=== PATIENT | female | born 1940 | race Caucasian/White ===

== ENCOUNTER → 2016-08-29 | Outpatient (CLI) | payer MEDICARE | LOC: RAD 16:17 | PROVIDERS: ATTEND Specialist | DX: C50.212 Malignant neoplasm of upper-inner quadrant of left female breast (principal) | CPT/HCPCS: 78815; A9552 ==

== ENCOUNTER → 2016-09-07 | Outpatient (CLI) | payer MEDICARE ==
--- NOTE | 2016-09-07 19:54 | XCELERA REPORT ---
[address] [address] Transthoracic Echocardiogram Report Name: ANTHONY UMANA Age: 76 yrs Gender: Female : 1940 Patient Status: Outpatient Patient Location: Study Date: 09/07/2016 09:45 AM Height: 61 in Weight: 156 lb BSA: 1.7 m2 Reason For Study: PERICARDIAL CYST I31.8 Ordering Physician: TODD LANDA Performed By: Justus Damon Interpretation Summary min. posteriior pericardial effusion.No pericardial cyst seen. Mild NSCAVD with no AR. Mild mitral annular calcification, no MS, mild MR with no MVP, and mod LA enlargement. No LVH, normal LVEF 58% with stage I LV diastolic dysfunction, apical IVS appears hypokinetic. no LV enlargement. TR mild ,mild pulm hypertension RVSP 37. no R heart enlargement. MMode/2D Measurements \T\ Calculations RVDd: 3.0 cm LVIDd: 5.3 cm FS: 31.4 % Ao root diam: 2.8 cm IVSd: 0.97 cm LVIDs: 3.6 cm EDV(Teich): 134.5 ml LVPWd: 0.98 cm ESV(Teich): 55.4 ml Ao root area: 6.2 cm2 EF(Teich): 58.8 % LA dimension: 4.7 cm Doppler Measurements \T\ Calculations MV E max paola: MV P1/2t max paola: Ao V2 max: LV V1 max P.6 cm/sec 80.0 cm/sec 102.9 cm/sec 1.8 mmHg MV A max paola: MV P1/2t: 71.0 msec Ao max PG: LV V1 max: 100.7 cm/sec 4.2 mmHg 68.0 cm/sec MV E/A: 0.72 MVA(P1/2t): 3.1 cm2 MV dec slope: 329.8 cm/sec2 MV dec time: 0.24 sec PA V2 max: PI end-d paola: TR max paola: RAP systole: 66.6 cm/sec 62.8 cm/sec 258.0 cm/sec 10.0 mmHg PA max P.8 mmHg TR max P.6 mmHg RVSP(TR): 36.6 mmHg Left Ventricle The left ventricle is normal in size. There is normal left ventricular wall thickness. LV EF is 58%. Doppler measurements suggest impaired left ventricular relaxation, which is associated with grade I/IV or mild diastolic dysfunction. There is distal septal wall mild hypokinesis. There is no thrombus. Right Ventricle The right ventricle is normal size. The right ventricular systolic function is normal. Atria The right atrium is normal in size. The left atrium is moderately dilated. The interatrial septum is intact with no evidence for an atrial septal defect. Mitral Valve There is mild mitral annular calcification. The mitral valve is grossly normal. There is no evidence of mitral valve prolapse. There is no mitral valve stenosis. There is a mild amount of mitral regurgitation. Aortic Valve The aortic valve is trileaflet. The aortic valve opens well. There is no aortic valvular vegetation. There is no aortic valve stenosis. No aortic regurgitation is present. Tricuspid Valve The tricuspid valve is not well visualized secondary to technical limitations. There is no tricuspid stenosis. There is a trace or physiologic amount of tricuspid regurgitation. Right ventricular systolic pressure is estimated to be elevated at 30-40mmHg. Pulmonic Valve The pulmonic valve is not well visualized. There is a trace or physiologic amount of pulmonic regurgitation. Great Vessels The aortic root is normal size. Effusions Minimal pericardial effusion. I WMSI = 1.06 % Normal = 94 Segments Size X - Cannot 1 - Normal 2 - 3 - Akinetic4 - 1-2 small Interpret Hypokinetic Dyskinetic 3-5 moderate 5 - 6-14 large Aneurysmal 15-16 diffuse : TODD LANDA > Domingo Tavares
== END ==
LOC: SP 09:26
PROVIDERS: ATTEND Specialist
DX: I31.8 Other specified diseases of pericardium (principal)
CPT/HCPCS: 93306

== ENCOUNTER 2016-09-27 10:55 | Day surgery (SDC) | payer MEDICARE ==
[~2016-09-27 10:55] MED LIST: PROPOFOL INJ 200 MG/20 ML VIAL IV ONE
--- NOTE | 2016-09-27 13:00 | Operative Report ---
Operative Report DATE OF SURGERY: 09/27/16 Operative Report: The risks benefits and alternatives of the procedure explained to the patient in detail and informed consent is obtained that GIF Olympus video scope was inserted into the patient's mouth and hypopharynx the esophagus is identified intubated and insufflated the scope was then advanced through the esophagus stomach and duodenum retroflexion maneuver is done the esophagus stomach and first and second portions of the duodenum examined PREOPERATIVE DIAGNOSIS: Gastric discomfort dyspepsia. CT scan suggestive of esophageal cyst, question bronchogenic cysts. POSTOPERATIVE DIAGNOSIS: Gastritis biopsies obtained rule out Helicobacter pylori. Duodenitis. Cystic lesion not within the lumen of the esophagus OPERATION: EGD with biopsy SURGEON: GORAN TONY ANESTHESIA: LMAC TISSUE REMOVED OR ALTERED: Gastric specimen obtained rule out Helicobacter pylori COMPLICATIONS: None. ESTIMATED BLOOD LOSS: none. INTRAOPERATIVE FINDINGS: Normal esophagus. As described above. First and second portions of the duodenum normal PROCEDURE: Patient tolerated the procedure well. No immediate postprocedure complications are noted. Patient is discharged in good condition. Discharge date 09/27/2016. Discharge diet: Regular. Discharge activity: Regular. 2-3 week follow-up to discuss findings. We'll await on biopsies. Patient is instructed to call the office or proceed to the emergency room should there be any further problems or questions.
[2016-09-27 13:35] VITALS: BP 144/70
== END 2016-09-27 13:30 | disposition home or self-care (01) ==
LOC: END 10:55
PROVIDERS: ATTEND Internal Medicine Gastroenterology
PROC: 0DB68ZX Excision of Stomach, Via Natural or Artificial Opening Endoscopic, Diagnostic (ICD-10-PCS; principal; 2016-09-27 14:30)
DX: K29.50 Unspecified chronic gastritis without bleeding (principal); K22.9 Disease of esophagus, unspecified; K29.80 Duodenitis without bleeding; E78.00 Pure hypercholesterolemia, unspecified; I10 Essential (primary) hypertension; Z79.82 Long term (current) use of aspirin; Z79.899 Other long term (current) drug therapy; Z88.1 Allergy status to other antibiotic agents
CPT/HCPCS: 43239; 88305 ×2; J2704; 740

== ENCOUNTER 2017-01-28 21:37 | Emergency (ER) | payer MEDICARE ==
[2017-01-28] MEDS ORDERED: ACETAMINOPHEN 325 MG TABLET ONE (21:49)
[2017-01-28] MEDS ORDERED: MORPHINE SULFATE 10 MG/ML INJ IM ONE (22:18)
--- NOTE | 2017-01-28 22:31 | ER Document Report ---
ED Fall - General Information source: Patient TRAVEL OUTSIDE OF THE [place] IN LAST 30 DAYS: No - HPI Patient complains to provider of: left shoulder pain Where: Home - General Chief Complaint: Shoulder Injury Stated Complaint: FALL/HEAD INJURY Time Seen by Provider: 01/28/17 22:24 Notes: Patient is a 76 year old female who presents to the ED with complaints of left shoulder pain secondary to a fall. Patient was being assisted down some stairs without a hand rail and fell approximately 3 stairs with the person helping her landing on top of her. Patient states she landed on her left side of face and head. Patient denies any LOC. Patient denies neck pain. No other concerns or complaints at this time. Patient has a history of osteoporosis, hypertension, hyperlipidemia, breast cancer and depression. (LAYLA RAMIREZ) - Related data Allergies/Adverse Reactions: No Known Allergies Allergy (Verified 09/27/16 11:14) Past Medical History - General Information source: Patient - Social History Smoking Status: Never Smoker Frequency of alcohol use: None Drug Abuse: None Family History: Reviewed & Not Pertinent Patient has suicidal ideation: No Patient has homicidal ideation: No - Past Medical History Cardiac Medical History: Reports: Hx Hypertension Denies: Hx Coronary Artery Disease, Hx Heart Attack Pulmonary Medical History: Denies: Hx Asthma, Hx Bronchitis, Hx COPD, Hx Pneumonia Neurological Medical History: Denies: Hx Cerebrovascular Accident, Hx Seizures Renal/ Medical History: Denies: Hx Peritoneal Dialysis Malignancy Medical History: Reports: Hx Breast Cancer Musculoskeltal Medical History: Denies Hx Arthritis Psychiatric Medical History: Reports: Hx Depression - Immunizations Hx Diphtheria, Pertussis, Tetanus Vaccination: Yes Hx Pneumococcal Vaccination: 07/11/15 Review of Systems - Review of Systems Constitutional: No symptoms reported EENT: No symptoms reported Cardiovascular: No symptoms reported Respiratory: No symptoms reported Gastrointestinal: No symptoms reported Genitourinary: No symptoms reported Female Genitourinary: No symptoms reported Musculoskeletal: See HPI, Other - left shoulder pain. denies: Neck pain Skin: No symptoms reported Hematologic/Lymphatic: No symptoms reported Neurological/Psychological: No symptoms reported Physical Exam - General General appearance: Appears well, Alert - HEENT Head: Normocephalic, Atraumatic, Other - no bruising, swelling or tenderness to left side of face Eyes: Normal Extraocular movements intact: Yes Pupils: PERRL Neck: Normal, Other - non tender - Respiratory Respiratory status: No respiratory distress Chest status: Nontender Breath sounds: Normal Chest palpation: Normal - Cardiovascular Rhythm: Regular Heart sounds: Normal auscultation Murmur: No - Abdominal Inspection: Normal Distension: No distension - Back Back: Normal - Extremities General upper extremity: Other - left shoulder tender to palpation and swollen, currently in shoulder immobilizer sling General lower extremity: Normal inspection Shoulder: Tender, Other - left shoulder tender to palpation and swollen, currently in shoulder immobilizer sling - Neurological Neuro grossly intact: Yes Cognition: Normal Orientation: AAOx4 [place] Coma Scale Eye Opening: Spontaneous [place] Coma Scale Verbal: Oriented Itzel Coma Scale Motor: Obeys Commands [place] Coma Scale Total: 15 Speech: Normal - Psychological Associated symptoms: Normal affect, Normal mood - Skin Skin Temperature: Warm Skin Moisture: Dry Skin Color: Normal Course - Re-evaluation Re-evalutation: 01/28/17 23:31 When I first saw the patient, she had a shoulder immobilizer/sling on and it seems to fit well. (NIKKY ALEGRE) - Vital Signs Vital signs: Temp Pulse Resp BP Pulse Ox 98.4 F 60 18 150/74 H 96 01/28/17 21:44 01/28/17 21:44 01/28/17 21:44 01/28/17 21:44 01/28/17 21:44 Discharge - Discharge Clinical Impression: Fracture of humeral head, left, closed Qualifiers: Encounter type: initial encounter Qualified Code(s): S42.292A - Other displaced fracture of upper end of left humerus, initial encounter for closed fracture Condition: Stable Disposition: HOME, SELF-CARE Additional Instructions: Fracture Proximal Humerus There is a fracture at the upper end of the humerus, near the shoulder joint. Your physician has assessed the fracture's severity and has determined that it will heal well without surgery or "setting." The typical shoulder fracture doesn't need a cast. It's best treated by binding the arm down with a special sling. Ice packs are used to reduce pain and swelling. After early healing has occurred, rejho-jp-hopiwl exercises are prescribed for the shoulder. Complete healing may take three to six weeks, depending on the age of the patient and the severity of the fracture. Call the doctor or return at once if the arm becomes numb, or if pain or swelling become severe. You have an impacted fracture of the left humeral head and neck. The treatment for this is the sling/immobilizer, ice packs today, and pain medication. Call the [facility] for surgery on Tuesday to schedule an appointment this week with the orthopedic surgeons. RETURN TO THE EMERGENCY ROOM IF ANY NEW OR WORSENING SYMPTOMS. Prescriptions: Oxycodone HCl/Acetaminophen [Percocet 5-325 mg Tablet] 1 - 2 tab PO ASDIR PRN # 20 tablet PRN Reason: Referrals: [facility] [Provider Group] - Follow up in 3-5 days Scribe Attestation: 01/28/17 23:31 I personally performed the services described in the documentation, reviewed and edited the documentation which was dictated to the scribe in my presence, and it accurately records my words and actions. (NIKKY ALEGRE) Scribe Documentation - Scribe Written by Jitendra:: jitendra Roblero, 01/28/2017 acting as scribe for :: Rosalio
--- NOTE | 2017-01-28 22:47 | RADIOLOGY REPORT (SQ) ---
EXAM DESCRIPTION: HUMERUS LEFT COMPLETED DATE/TIME: 01/28/2017 10:13 pm REASON FOR STUDY: fall COMPARISON: None. NUMBER OF VIEWS: Two views. TECHNIQUE: Two radiographic images were acquired of the left humerus to include elbow and shoulder i n at least one projection. LIMITATIONS: None. FINDINGS: MINERALIZATION: Normal. BONES: Impacted fracture of the humeral head and neck. No other acute fracture or dislocation. No w orrisome bone lesions. SOFT TISSUES: No obvious swelling or foreign body. OTHER: No other significant finding. IMPRESSION: IMPACTED FRACTURE OF THE HUMERAL HEAD AND NECK. TECHNICAL DOCUMENTATION: JOB ID: [id number] [employer]- All Rights Reserved
--- NOTE | 2017-01-28 22:48 | RADIOLOGY REPORT (SQ) ---
EXAM DESCRIPTION: SHOULDER LEFT 2 OR MORE VIEWS COMPLETED DATE/TIME: 01/28/2017 10:13 pm REASON FOR STUDY: fall COMPARISON: None. NUMBER OF VIEWS: Two views. TECHNIQUE: Frontal and lateral images acquired of the left shoulder. LIMITATIONS: Limited positioning. FINDINGS: MINERALIZATION: Normal. BONES: Impacted fracture of the humeral head and neck. JOINTS: No dislocation. VISUALIZED LUNGS AND RIBS: No pneumothorax. No rib fracture. SOFT TISSUES: No radiopaque foreign body. OTHER: No other significant finding. IMPRESSION: LIMITED STUDY. IMPACTED FRACTURE OF THE HUMERAL HEAD AND NECK. TECHNICAL DOCUMENTATION: JOB ID: [id number] [employer]- All Rights Reserved
--- NOTE | 2017-01-28 23:11 | RADIOLOGY REPORT (SQ) ---
EXAM DESCRIPTION: CT HEAD WITHOUT COMPLETED DATE/TIME: 01/28/2017 11:00 pm REASON FOR STUDY: fall, hit head COMPARISON: None. TECHNIQUE: Axial images acquired through the brain without intravenous contrast. Images reviewed wi th bone, brain and subdural windows. Images stored on PACS. All CT scanners at this facility use dose modulation, iterative reconstruction, and/or weight based d osing when appropriate to reduce radiation dose to as low as reasonably achievable (ALARA). [facility]: Dose Right [facility]: CareDose [facility]: Dose Right [facility]: Teradose 4D [facility]: Smart SuperSonic Imagine RADIATION DOSE: Up-to-date CT equipment and radiation dose reduction techniques were employed. CTDIv ol: 64.6 mGy. DLP: 1034 mGy-cm. mGy. LIMITATIONS: None. FINDINGS: VENTRICLES: Prominent. CEREBRUM: No masses. No hemorrhage. No midline shift. Areas of low density in the white matter mos t likely due to chronic micro-vascular ischemic change. No evidence for acute infarction. CEREBELLUM: No masses. No hemorrhage. No alteration of density. No evidence for acute infarction. EXTRAAXIAL SPACES: Mild age-related involutional change. No fluid collections. No masses. ORBITS AND GLOBE: No intra- or extraconal masses. Normal contour of globe without masses. CALVARIUM: No fracture. PARANASAL SINUSES: No fluid or mucosal thickening. SOFT TISSUES: No mass or hematoma. OTHER: No other significant finding. IMPRESSION: MILD CHRONIC CHANGES OF ATROPHY AND MICROVASCULAR ISCHEMIA. NO ACUTE PROCESS. TECHNICAL DOCUMENTATION: JOB ID: [id number] Quality ID # [id number]: Final reports with documentation of one or more dose reduction techniques (e.g., Au tomated exposure control, adjustment of the mA and/or kV according to patient size, use of iterative reconstruction technique) 2010 [employer]- All Rights Reserved
[2017-01-28] MEDS ORDERED: OXYCODONE-ACETAMINOPHEN 5-325 MG TABLET PO ONE (23:32)
[2017-01-28] MEDS ORDERED: HYDROCODONE/ACETAMINOPHEN 5-325 MG 6 TAB/DSPK PO PRN (23:44)
[2017-01-29 00:01] VITALS: BP 167/78
== END 2017-01-28 23:45 | disposition home or self-care (01) ==
LOC: ER 21:37
DX: S42.292A Other displaced fracture of upper end of left humerus, initial encounter for closed fracture (principal); S09.90XA Unspecified injury of head, initial encounter; W10.9XXA Fall (on) (from) unspecified stairs and steps, initial encounter; M81.0 Age-related osteoporosis without current pathological fracture; I10 Essential (primary) hypertension; E78.5 Hyperlipidemia, unspecified; Z85.3 Personal history of malignant neoplasm of breast
CPT/HCPCS: 99284; 96372; 73060; 73030; 70450; J2270; A9270 ×2

== ENCOUNTER 2017-02-09 05:14 | Day surgery (SDC) | payer MEDICARE ==
[2017-02-07 10:10] LABS: ABSOLUTE EOSINOPHILS # (AUTO) 0.2 10^3/uL (0.0-0.6); ABSOLUTE LYMPHOCYTES (AUTO) 0.4 10^3/uL (0.5-4.7); ABSOLUTE MONOCYTES (AUTO) 0.5 10^3/uL (0.1-1.4); ABSOLUTE NEUT (AUTO) 5.9 10^3/uL (1.7-8.2); BASOPHILS % (AUTO) 0.3 % (0-2); EOSINOPHILS % (AUTO) 2.9 % (0-6); HEMATOCRIT 39.6 % (36.0-47.0); HEMOGLOBIN 13.9 g/dL (12.0-15.5); HGB HCT DIFFERENCE 2.1; LYMPHOCYTES % (AUTO) 5.7 % (13-45); MEAN CORPUSCULAR HEMOGLOBIN 31.3 pg (27.0-33.4); MEAN CORPUSCULAR VOLUME 90 fl (80-97); MONOCYTES % (AUTO) 7.4 % (3-13); RED BLOOD COUNT 4.42 10^6/uL (3.72-5.28); RED CELL DISTRIBUTION WIDTH 13.4 % (11.5-14.0); SEGMENTED NEUTROPHILS % (AUTO) 83.7 % (42-78)
[2017-02-07 10:15] LABS: APPEARANCE,URINE CLEAR; BILIRUBIN,URINE NEGATIVE (NEGATIVE); GLUCOSE, URINE NEGATIVE (NEGATIVE); KETONES,URINE NEGATIVE (NEGATIVE); LEUKOCYTE ESTERASE,URINE SMALL (NEGATIVE); NITRITE,URINE NEGATIVE (NEGATIVE); PROTEIN,URINE NEGATIVE (NEGATIVE); URINE SPECIFIC GRAVITY 1.004; UROBILINOGEN,URINE NEGATIVE mg/dL (<2.0)
--- NOTE | 2017-02-07 11:09 | RADIOLOGY REPORT (SQ) ---
EXAM DESCRIPTION: CHEST PA/LATERAL COMPLETED DATE/TIME: 02/07/2017 10:50 am REASON FOR STUDY: PRE OP COMPARISON: None. EXAM PARAMETERS: NUMBER OF VIEWS: two views TECHNIQUE: Digital Frontal and Lateral radiographic views of the chest acquired. RADIATION DOSE: NA LIMITATIONS: none FINDINGS: LUNGS AND PLEURA: The lungs are mildly hyperexpanded. Mild chronic interstitial changes a re suggested. There is no infiltrate or effusion. No mass is seen. MEDIASTINUM AND HILAR STRUCTURES: No masses or contour abnormalities. HEART AND VASCULAR STRUCTURES: Heart normal size. No evidence for failure. BONES: No acute findings. HARDWARE: None in the chest. OTHER: No other significant finding. IMPRESSION: Chronic lung changes no acute cardiopulmonary disease. TECHNICAL DOCUMENTATION: JOB ID: [id number] [employer]- All Rights Reserved
--- NOTE | 2017-02-07 13:35 | EKG REPORT ---
SEVERITY:- ABNORMAL ECG - SINUS RHYTHM PROBABLE LEFT VENTRICULAR HYPERTROPHY : Confirmed by: Domingo Tavares MD 07-Feb-2017 13:34:48
[~2017-02-09 05:14] MED LIST changes: +LACTATED RINGERS 1000 ML IV PRN; +LIDOCAINE 0.5% INJ-PF (5 MG/ML) 50 ML SDV SUBCUT PRN; -PROPOFOL INJ 200 MG/20 ML VIAL IV ONE
[2017-02-09] MEDS ORDERED: BUPIVACAINE HCL 0.5%-EPI 1:200000 INJ/PF 30 ML VIAL ONE (05:50)
[2017-02-09 06:34] LABS: ANION GAP 10 (5-19); BLOOD UREA NITROGEN 7 mg/dL (7-20); CALCIUM 9.7 mg/dL (8.4-10.2); CARBON DIOXIDE 26 mmol/L (22-30); CHLORIDE 95 mmol/L (98-107); GLUCOSE 102 mg/dL (75-110); POTASSIUM 4.4 mmol/L (3.6-5.0); SODIUM 131.4 mmol/L (137-145)
[2017-02-09] MEDS ORDERED: EPHEDRINE SULFATE INJ 50 MG/1 ML AMPULE ONE (06:50)
[2017-02-09] MEDS ORDERED: FENTANYL CITRATE INJ/PF 250 MCG/5 ML AMPULE ONE (06:50)
[2017-02-09] MEDS ORDERED: MIDAZOLAM 2 MG/2 ML INJ ONE (06:50)
[2017-02-09] MEDS ORDERED: ACETAMINOPHEN 100 ML IV ONE (06:51)
[2017-02-09] MEDS ORDERED: IBUPROFEN INJ 800 MG/8 ML VIAL IV ONE (06:51)
[2017-02-09] MEDS ORDERED: PROPOFOL INJ 200 MG/20 ML VIAL IV ONE (06:51)
[2017-02-09] MEDS ORDERED: DIPHENHYDRAMINE HCL 50 MG/ML VIAL IV PRN (08:10)
[2017-02-09] MEDS ORDERED: ONDANSETRON HCL INJ/PF 4 MG/2 ML SDV IV PRN (08:10)
[2017-02-09] MEDS ORDERED: MEPERIDINE HCL/PF INJ 25 MG/1 ML DISP.SYRIN IV PRN (08:10)
[2017-02-09] MEDS ORDERED: FENTANYL CITRATE INJ/PF 100 MCG/2 ML AMPUL IV PRN ×3 (08:10)
--- NOTE | 2017-02-09 08:35 | Operative Report ---
Operative Report DATE OF SURGERY: 02/09/17 PREOPERATIVE DIAGNOSIS: Left surgical neck fracture of the humerus OPERATION: Open reduction internal fixation left proximal humerus fracture SURGEON: SACHI WALTERS ANESTHESIA: GA ESTIMATED BLOOD LOSS: 50 PROCEDURE: With the patient supine on the operating table left upper extremity and forequarter prepped and draped in a sterile fashion. A standard deltopectoral approach was taken to the proximal humerus. The proximal humeral fracture is identified under fluoroscopy reduced with direct distraction leading to near anatomic reduction. A [place] short titanium left proximal humerus plate is applied to the proximal humerus and pins are placed proximally and distally with the fracture distracted to maintain the reduction. Subsequently 3 locking screws were placed proximally and 4 locking screws were placed distally. The fracture reduction hardware placement are again checked fluoroscopically and felt to be adequate. At this point the wound is irrigated. Is closed with interrupted Vicryl followed by ricardo. A sterile compressive dressing and shoulder immobilizer applied and the patient's return to the PACU in satisfactory condition.
[2017-02-09] MEDS: FENTANYL CITRATE INJ/PF 100 MCG/2 ML AMPUL ONE ×2 (08:50→09:00)
[2017-02-09] MEDS ORDERED: OXYCODONE HCL IR 5 MG TABLET ONE (09:41)
--- NOTE | 2017-02-09 10:04 | RADIOLOGY REPORT (SQ) ---
EXAM DESCRIPTION: HUMERUS LEFT; NO CHG FLUORO COMPLETED DATE/TIME: 02/09/2017 9:24 am REASON FOR STUDY: ORIF LEFT HUMERUS ASSIST WITH FLUORO IN OR M25.512 PAIN IN LEFT SHOULDER COMPARISON: 01/28/2017 FLUOROSCOPY TIME: 0.3 minute 3 images saved to PACS. TECHNIQUE: Intra-operative images acquired during surgical procedure to evaluate progress. NUMBER OF IMAGES: 3 spot fluoroscopic images LIMITATIONS: None. FINDINGS: 3 spot fluoroscopic images from open reduction internal fixation of left proximal humeral fracture. Images demonstrate placement of malleable plate and screws across the left humeral head an d proximal humeral shaft. There is some improved anatomic alignment of the fracture improved in comp arison to the prior radiographs. Noted and multiple screws extend beyond the media cortex of the hum eral shaft. There is no evidence for orthopedic hardware complication otherwise. Please see operati ve report full details regarding procedure. IMPRESSION: IMAGE(S) OBTAINED DURING PROCEDURE. COMMENT: Quality ID 145: Final reports for procedures using fluoroscopy that document radiation exp osure indices, or exposure time and number of fluorographic images (if radiation exposure indices are not available) Please consult full operative report of the attending physician for description of the procedure. TECHNICAL DOCUMENTATION: JOB ID: [id number] [employer]- All Rights Reserved
[2017-02-09] MEDS ORDERED: OXYCODONE HCL IR 5 MG TABLET PO PRN (10:05)
[2017-02-09] MEDS ORDERED: ONDANSETRON 4 MG TAB.RAPDIS PO PRN (10:06)
[2017-02-09 11:00] VITALS: BP 186/90
[2017-02-09] MEDS ORDERED: DEXAMETHASONE SOD PHOSPHATE INJ 4 MG/1 ML VIAL ONE (11:29)
[2017-02-09] MEDS ORDERED: VECURONIUM BROMIDE INJ 10 MG VIAL IV ONE (11:29)
[2017-02-09] MEDS ORDERED: ONDANSETRON HCL INJ/PF 4 MG/2 ML SDV ONE (11:29)
[2017-02-09] MEDS ORDERED: LIDOCAINE 2% INJ-PF (20 MG/ML) 10 ML AMPUL ONE (11:29)
[2017-02-09] MEDS ORDERED: SUCCINYLCHOLINE CHLORIDE INJ 200 MG/10 ML VIAL ONE (11:29)
[2017-02-10] MEDS ORDERED: CEFAZOLIN SODIUM 2 GM in DEXTROSE 5%-WATER 100 ML IV PRN (05:00)
== END 2017-02-09 10:50 | disposition home or self-care (01) ==
LOC: OROUT 05:14
PROVIDERS: ATTEND Orthopaedic Surgery
PROC: 0PSD04Z Reposition Left Humeral Head with Internal Fixation Device, Open Approach (ICD-10-PCS; principal; 2017-02-09 07:30)
DX: S42.212A Unspecified displaced fracture of surgical neck of left humerus, initial encounter for closed fracture (principal); W10.9XXA Fall (on) (from) unspecified stairs and steps, initial encounter; M25.512 Pain in left shoulder; I10 Essential (primary) hypertension; R01.1 Cardiac murmur, unspecified; Z88.5 Allergy status to narcotic agent; Z79.899 Other long term (current) drug therapy; Z79.891 Long term (current) use of opiate analgesic; Z85.3 Personal history of malignant neoplasm of breast
CPT/HCPCS: 93005; 36415 ×2; 85025; 80048; 81001; 71020; 73060; 93010; 23615; C1713 ×3; J2250; J3490 ×3; J1100; J3010 ×2; J0330; J2405; J2704; A9270; J0131; 01630; J0690; J1741

== ENCOUNTER → 2017-04-11 | Outpatient (CLI) | payer MEDICARE ==
--- NOTE | 2017-04-11 13:56 | RADIOLOGY REPORT (SQ) ---
EXAM DESCRIPTION: CT CHEST WITH COMPLETED DATE/TIME: 04/11/2017 1:22 pm REASON FOR STUDY: COUGH (R05) R05 COUGH COMPARISON: Two-view chest 02/07/2017 PET-CT 08/29/2016 TECHNIQUE: CT scan of the chest performed using helical scanning technique with dynamic intravenous contrast injection. Images reviewed with lung, soft tissue and bone windows. Reconstructed coronal and sagittal MPR images reviewed. All images stored on PACS. All CT scanners at this facility use dose modulation, iterative reconstruction, and/or weight based d osing when appropriate to reduce radiation dose to as low as reasonably achievable (ALARA). [facility]: Dose Right [facility]: CareDose [facility]: Dose Right [facility]: Teradose 4D [facility]: Eyenalyze CONTRAST TYPE AND DOSE: contrast/concentration: Isovue 370.00 mg/ml; Total Contrast Delivered: 80.0 ml; Total Saline Delivered: 55.0 ml RENAL FUNCTION: Creatinine 0.4 RADIATION DOSE: Up-to-date CT equipment and radiation dose reduction techniques were employed. CTDIv ol: 4.6 mGy. DLP: 181 mGy-cm. . LIMITATIONS: None. FINDINGS: LUNGS AND PLEURA: No opacities, nodules, masses. No pneumothorax. No effusions. HILAR AND MEDIASTINAL STRUCTURES: There are surgical clips along the right subcarinal region and infe rior hilar region post removal of a bronchogenic cyst in November of this year at an outside institution. Hilar and mediastinal structures are otherwise unremarkable. HEART AND VASCULAR STRUCTURES: No aneurysm or dissection. No central pulmonary emboli. No pericardi al effusion. HARDWARE: Surgical clips as above. There is an intact subpectoral breast implant, and a chronically deflated left breast the pectoral implant, unchanged from 08/29/2016. UPPER ABDOMEN: 3 cm left midpole renal cyst. Small hiatal hernia. THYROID AND OTHER SOFT TISSUES: No masses. No adenopathy. BONES: Healed right lateral 8th and 9th rib fractures post prior thoracotomy OTHER: No other significant finding. IMPRESSION: No CT findings to explain history of cough. TECHNICAL DOCUMENTATION: JOB ID: [id number] Quality ID # [id number]: Final reports with documentation of one or more dose reduction techniques (e.g., Au tomated exposure control, adjustment of the mA and/or kV according to patient size, use of iterative reconstruction technique) 2010 [employer]- All Rights Reserved
== END ==
LOC: RAD 12:28
PROVIDERS: ATTEND Internal Medicine
DX: R05 Cough (principal)
CPT/HCPCS: 71260; 82565